=== PATIENT | female | born 2000 | race Caucasian/White ===

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

== ENCOUNTER 2022-11-29 18:59 | Emergency (ER) | payer OTHER, SELFPAY ==
[2022-11-29] MEDS ORDERED: TETANUS, DIPHTHERIA TOX,ADULT (TDVAX) 0.5 ML VIAL IM ONE (19:09)
[2022-11-29] MEDS ORDERED: Boostrix 0.5 ML (Tdap) VIAL (>/=7 yrs of age) ONE (19:09)
[2022-11-29] MEDS ORDERED: Bacitracin 1 PK ONE (19:10)
== END 2022-11-29 19:29 | disposition home or self-care (01) ==
LOC: MADERS 18:59
DX: S81.011A Laceration without foreign body, right knee, initial encounter (principal); I83.891 Varicose veins of right lower extremity with other complications; W26.0XXA Contact with knife, initial encounter; Y93.89 Activity, other specified; Y92.69 Other specified industrial and construction area as the place of occurrence of the external cause; Z23 Encounter for immunization; Z79.899 Other long term (current) drug therapy
CPT/HCPCS: 90471; 90714; 90715